=== PATIENT | female | born 2000 | race Caucasian/White ===

== ENCOUNTER 2025-02-27 20:48 | Emergency (ER) | payer SELFPAY ==
[2025-02-27] MEDS: Ketorolac 60 MG/2 ML SDV IM ONE (21:41)
[2025-02-27] MEDS: LORazepam 0.5 MG Tab PO ONE (22:59)
== END 2025-02-27 23:02 | disposition home or self-care (01) ==
LOC: MW.ED 20:48
DX: R07.89 Other chest pain (principal)
CPT/HCPCS: 36415; 71046; 85379; 93005; 99285; A9270; J1885; 93010; 99283